=== PATIENT | male | born 1945 | race African-American/Black ===

== ENCOUNTER 2024-08-26 11:47 | Emergency (ER) | payer MEDICARE ==
[~2024-08-26] VITALS: Ht 182.9 cm; Wt 105.8 kg
[2024-08-26 14:32] VITALS: PULSE 58; RESP 16; TEMP 97.5; O2SAT 98
== END 2024-08-26 13:46 | disposition home or self-care (01) ==
LOC: FSED 11:51
DX: R42 Dizziness and giddiness (principal); E11.65 Type 2 diabetes mellitus with hyperglycemia; I10 Essential (primary) hypertension; M10.9 Gout, unspecified; F32.A Depression, unspecified; Z86.718 Personal history of other venous thrombosis and embolism; Z79.01 Long term (current) use of anticoagulants
CPT/HCPCS: 70450; 80053; 81003; 82553; 84484; 85025; 93005; 99284